=== PATIENT | female | born 1970 | race Caucasian/White ===

== ENCOUNTER 2019-11-02 13:52 | Emergency (ER) | payer OTHER ==
[~2019-11-02] VITALS: Ht 157.5 cm; Wt 80.0 kg
[2019-11-02] MEDS ORDERED: labetalol 20mg/4ml (5mg/ml) syringe IV ONE (14:30)
[2019-11-02 14:47] LABS: BASOPHILS # (AUTO) 0.1 X10'3 (0-0.2); BASOPHILS % (AUTO) 1.3 % (0-1); EOSINOPHILS # (AUTO) 0.1 X10'3 (0-0.9); EOSINOPHILS % (AUTO) 1.2 % (0-6); HEMATOCRIT 43.9 % (35.0-45.0); LYMPHOCYTES # (AUTO) 2.8 X10'3 (1.1-4.8); MEAN CORPUSCULAR HGB CONC 34.2 g/dL (33.0-36.5); MEAN CORPUSCULAR VOLUME 90.8 FL (78-98); MEAN PLATELET VOLUME 7.4 FL (7.4-10.4); MONOCYTES # (AUTO) 0.7 X10'3 (0-0.9); MONOCYTES % (AUTO) 8.1 % (2-12); NEUTROPHILS % (AUTO) 57.4 % (42-75); PLATELET COUNT 298 X10'3 (140-440); RED BLOOD COUNT 4.84 X10'6 (4.20-5.60); RED CELL DISTRIBUTION WIDTH 13.8 % (11.5-14.5); WHITE BLOOD COUNT 8.8 X10'3 (4.5-11.0)
[2019-11-02 14:58] LABS: ALANINE AMINOTRANSFERASE 37 U/L (12-78); ALBUMIN 3.9 G/DL (3.4-5.0); ALBUMIN/GLOBULIN RATIO 1.1 (1.1-1.5); ALKALINE PHOSPHATASE 93 IU/L (46-116); ANION GAP 7 (8-16); ASPARTATE AMINO TRANSFERASE 31 U/L (10-37); BILIRUBIN,TOTAL 0.5 MG/DL (0.1-1.0); BLOOD UREA NITROGEN 23 MG/DL (7-18); BUN/CREATININE RATIO 20.2 (6.6-38.0); CALCIUM 8.9 MG/DL (8.5-10.1); CHLORIDE 103 MMOL/L (99-107); CREATININE 1.14 MG/DL (0.40-0.90); GLUCOSE 74 MG/DL (70-104); POTASSIUM 3.6 MMOL/L (3.5-5.1); SODIUM 140 MMOL/L (135-145); TOTAL PROTEIN 7.6 G/DL (6.4-8.2); eGFR 50 ML/MIN
[2019-11-02 15:13] LABS: ETHANOL < 0.010 GM/DL (0.0-0.010)
[2019-11-02] MEDS ORDERED: cloNIDine 0.1 mg tablet PO SCH (15:15)
[2019-11-02] MEDS ORDERED: lisinopril 10 MG tablet PO ONE (15:25)
[2019-11-02] MEDS ORDERED: HYDROchlorothiazide 25mg tablet PO ONE (15:25)
[2019-11-02] MEDS ORDERED: LISI1TAB29 PO (15:27)
[2019-11-02 15:29] LABS: CLARITY,URINE CLEAR (Clear); COLOR,URINE STRAW (Yellow); GLUCOSE, URINE NEGATIVE (Neg); KETONES,URINE NEGATIVE (Neg); LEUKOCYTE ESTERASE ,URINE NEGATIVE (Neg); NITRITES, URINE NEGATIVE (Neg); OCCULT BLOOD,URINE TRACE-INTACT (Neg); PH,URINE 6.5 (4.8-8.0); PROTEIN,URINE NEGATIVE (Neg); UROBILINOGEN,URINE 0.2 E.U/dL (0.2-1.0)
[2019-11-02 15:36] LABS: UA COLLECTION TYPE CLN CATCH MIDSTREAM
[2019-11-02 15:37] LABS: URINE AMPHETAMINE SCREEN POSITIVE (Neg); URINE BARBITUATE SCREEN NEGATIVE (Neg); URINE BENZODIAZEPINES SCREEN NEGATIVE (Neg); URINE CANNABINOID SCREEN POSITIVE (Neg); URINE COCAINE SCREEN NEGATIVE (Neg); URINE METHADONE SCREEN NEGATIVE (Neg); URINE OPIATE SCREEN NEGATIVE (Neg); URINE PHENCYCLIDINE SCREEN NEGATIVE (Neg)
[2019-11-02 15:42] LABS: BACTERIA,URINE FEW /HPF (Neg); MUCUS STRANDS NONE SEEN /LPF (Neg); RBC,URINE 0-2 /HPF (0-2); SQUAMOUS EPITHELIAL CELL,UR FEW /LPF (FEW); WBC,URINE 0-4 /HPF (0-4)
--- NOTE | 2019-11-02 16:38 | NUR ---
Spoke with Dr. Field regarding patients continued elevated blood pressure of 188/[address] Field stated to continue to monitor patient status.
[2019-11-02] MEDS ORDERED: NO HOME MEDS (16:54)
--- NOTE | 2019-11-02 17:53 | NUR ---
NO CHANGE IN PT.SLEEPING BUT WAKENS TO VOICE.
--- NOTE | 2019-11-02 18:15 | NUR ---
At approx. 1638 patient had a t wave inversion that converted at 1808. Dr. Field notified and EKG obtained. Dr. Field stated to continue to observe patients status.
[2019-11-02] MEDS ORDERED: normal saline 1000ml 1,000 ML IV ONE (19:15)
[2019-11-02 21:36] VITALS: BP 172/88
== END 2019-11-02 21:38 | disposition home or self-care (01) ==
LOC: ER 13:52
DX: I10 Essential (primary) hypertension (principal); R41.82 Altered mental status, unspecified; F15.90 Other stimulant use, unspecified, uncomplicated; F41.9 Anxiety disorder, unspecified; Z79.899 Other long term (current) drug therapy
CPT/HCPCS: 36415; 70450; 71045; 80053; 80305; 80320; 81001; 84484; 85025; 93005; 96361; 96374; 99284; J7030; J3490

== ENCOUNTER 2020-03-14 19:35 | Emergency (ER) | payer MEDICAID ==
[~2020-03-14] VITALS: Ht 154.9 cm; Wt 59.1 kg
[~2020-03-14 19:35] MED LIST: NO HOME MEDS
[2020-03-14 19:38] VITALS: BP 93/62
[2020-03-14] MEDS ORDERED: AMOX-422 PO (21:17)
== END 2020-03-14 21:31 | disposition home or self-care (01) ==
LOC: ER 19:36
DX: K02.9 Dental caries, unspecified (principal); I10 Essential (primary) hypertension; F41.9 Anxiety disorder, unspecified; F12.90 Cannabis use, unspecified, uncomplicated; Z79.2 Long term (current) use of antibiotics
CPT/HCPCS: 99283

== ENCOUNTER 2020-05-01 15:14 | Emergency (ER) | payer MEDICAID ==
[~2020-05-01] VITALS: Ht 157.5 cm; Wt 57.0 kg
[2020-05-01] MEDS ORDERED: normal saline 1000ML IV soln IVB ONE ×2 (17:25→18:00)
--- NOTE | 2020-05-01 19:15 | NUR ---
pt has episodes of her tongue feeling like it crawls backwards and then gets white and both of her big toes go numb. Happened several times this past month. Occured x 2 here. I witnessed the tongue being white. Looks like thrush.
[2020-05-01 19:39] VITALS: BP 102/51
[2020-05-01] MEDS ORDERED: BLOO1KIT81 TOP (19:40)
== END 2020-05-01 19:42 | disposition home or self-care (01) ==
LOC: ER 15:17
DX: R42 Dizziness and giddiness (principal); T46.4X5A Adverse effect of angiotensin-converting-enzyme inhibitors, initial encounter; I10 Essential (primary) hypertension; R20.0 Anesthesia of skin; F41.9 Anxiety disorder, unspecified; F12.90 Cannabis use, unspecified, uncomplicated; F15.90 Other stimulant use, unspecified, uncomplicated; Y92.89 Other specified places as the place of occurrence of the external cause
CPT/HCPCS: 93005; 96360; 99284; J7030

== ENCOUNTER → 2020-07-15 | Outpatient (CLI) | payer MEDICAID ==
[~2020-07-15] MED LIST changes: +BLOO1KIT81 TOP
== END | disposition home or self-care (01) ==
LOC: RAD 10:39
PROVIDERS: ATTEND Nurse Practitioner
DX: R55 Syncope and collapse (principal)
CPT/HCPCS: 95816